=== PATIENT | female | born 1950 | race Caucasian/White ===

== ENCOUNTER 2018-01-22 07:29 | Emergency (ER) | payer OTHER ==
[~2018-01-22] VITALS: Ht 160 cm; Wt 100.8 kg
[~2018-01-22 07:29] MED LIST: ACETAMINOPHN-T1 EACH PO; BENADRYL25 MG PO; CIPRO500 MG PO; COZAAR25 MG PO; CRESTOR5 MG PO; CYMBALTA30 MG PO; IRON325 MG PO; LOTEMAX5 ML BOTH EYES; NASONEX17 GM BOTH NARES; OCUVITE TABLET1 EACH PO; PROTONIX40 MG PO; SENNA PLUS TAB1 EACH PO; SINGULAIR10 MG PO; TYLENOL REGULA325 MG PO; ULTRAM50 MG PO; VITAMIN D-32000 UNI2 PO; XARELTO10 MG PO; ZYRTEC10 M3 PO
[2018-01-22 07:52] LABS: HEMATOCRIT 43.7 % (36.0-46.0); MCH 29.6 PG (29.0-34.0); MCHC 34.3 G/DL (30.0-36.0); MCV 86.2 FL (83-99); PLATELET COUNT 267 K/uL (156-360); RBC DIS.WIDTH-CV 12.6 % (11.8-14.6); RBC DIS.WIDTH-SD 39.2 % (39-53); RED BLOOD COUNT 5.07 M/uL (3.80-5.20); WHITE BLOOD COUNT 11.8 K/uL (4.1-10.2)
[2018-01-22 08:32] LABS: TROP-I INTERPRETATION NEGATIVE; TROPONIN-I < 0.01 ng/mL (0.0-0.30)
[2018-01-22 08:36] LABS: CHLORIDE 105 MEQ/L (99-109); CREATININE 0.7 MG/DL (0.6-1.3); GFR ESTIMATE (CALCULATED) > 59 mL/min/; GLUCOSE 135 mg/dL (70-99); POTASSIUM 3.9 MEQ/L (3.7-5.4); SODIUM 141 MEQ/L (136-147); UREA NITROGEN (BUN) 15 mg/dL (9-23)
[2018-01-22] MEDS ORDERED: PERCOCET 5/31 TABLET PO (08:53)
[2018-01-22 09:21] VITALS: BP 144/63
== END 2018-01-22 10:15 | disposition home or self-care (01) ==
LOC: EME 07:29
PROVIDERS: Emergency Medicine
PROC: 2W3RX1Z Immobilization of Left Lower Leg using Splint (ICD-10-PCS; principal; 2018-01-22)
DX: S82.842A Displaced bimalleolar fracture of left lower leg, initial encounter for closed fracture (principal); X58.XXXA Exposure to other specified factors, initial encounter; Y92.003 Bedroom of unspecified non-institutional (private) residence as the place of occurrence of the external cause; E78.5 Hyperlipidemia, unspecified; F41.9 Anxiety disorder, unspecified; Z85.9 Personal history of malignant neoplasm, unspecified; Z88.5 Allergy status to narcotic agent; Z88.8 Allergy status to other drugs, medicaments and biological substances
CPT/HCPCS: 71045; 73610; 80048; 84484; 85027; 93005; 99281; 99284

== ENCOUNTER 2018-03-22 13:39 | Day surgery (SDC) | payer OTHER ==
[~2018-03-22] VITALS: Ht 160 cm; Wt 93.4 kg
[~2018-03-22 13:39] MED LIST changes: +CALCIUM 500 MG1 EACH PO; +COQ-10100 MG PO; +COZAAR50 MG PO; +PERCOCET 5/31 TABLET PO
[2018-03-22 14:05] VITALS: BP 176/72
[2018-03-22 20:20] VITALS: BP 195/80
[2018-03-22 21:20] VITALS: BP 179/78
== END 2018-03-22 21:35 | disposition home or self-care (01) ==
LOC: SDC 13:39
PROC: 0QQ Lower Bones, Repair (ICD-10-PCS; principal; 2018-03-22)
DX: T84.197A Other mechanical complication of internal fixation device of bone of left lower leg, initial encounter (principal); M85.872 Other specified disorders of bone density and structure, left ankle and foot; I10 Essential (primary) hypertension; E78.5 Hyperlipidemia, unspecified; K21.9 Gastro-esophageal reflux disease without esophagitis; F41.9 Anxiety disorder, unspecified; Z90.710 Acquired absence of both cervix and uterus; Z88.2 Allergy status to sulfonamides; Z88.5 Allergy status to narcotic agent; Z88.1 Allergy status to other antibiotic agents; Z88.8 Allergy status to other drugs, medicaments and biological substances; Y83.1 Surgical operation with implant of artificial internal device as the cause of abnormal reaction of the patient, or of later complication, without mention of misadventure at the time of the procedure
CPT/HCPCS: 73600; 73610; 76000; C1713; J0690; J1100; J1170; J1885; J2405; J2795; J3010